=== PATIENT | male | born 1945 | race Caucasian/White ===

== ENCOUNTER 2016-09-19 05:45 | Emergency (ER) | payer OTHER ==
[~2016-09-19] VITALS: Ht 180.3 cm; Wt 108.9 kg
--- NOTE | ~2016-09-19 | EKG ---
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 : 1945 Requested By: Radha Castelan Order Number: [id number] MD: Russ Rodriguez Measurements Intervals [place] Rate: 121 P: [place]: QRS: -56 QRSD: 159 T: 43 QT: 379 QTc: 538 Interpretive Statements Atrial fibrillation RBBB and LAFB Compared to ECG 07/29/2016 10:13:56 Right bundle-branch block now present Supraventricular tachycardia no longer present ST (T wave) deviation no longer present Intraventricular conduction delay no longer present Electronically Signed On 09-19-2016 13:34:42 CDT by Russ Rodriguez [email or web address] <ELECTRONICALLY SIGNED> By: Russ Rodriguez MD 09/19/16 1334 0554 0554 Russ Rodriguez MD /EPI
[~2016-09-19 05:45] MED LIST: 1ST CHOICE LAN1 EACH MISCELL; ALEVE220 MG PO; ALLOPURINOL 10100 M1 PO; AMIODARONE HCL100 MG PO; ASPIR 8181 MG PO; ASPIRIN325 PO; ATENOLOL 50MG T50 M1 PO; ATENOLOL 50MG T50 MG PO; ATORVASTATIN CA40 MG PO; AZULFIDINE500 M1 PO; AZULFIDINE500 MG PO; BACTRIM DS TAB1 EACH PO; CO Q-10100 MG PO; COLCHICINE0.6 MG PO; COUMADIN 5 MG TA5 M1 PO; COZAAR 50 MG TA50 M2 PO; ENOXAPARIN100 MG/11 SUBQ; FISH OIL 1,001000 M2 PO; FLEXERIL PO; FLOMAX0.4 MG PO; GLIPIZIDE ER2.5 MG PO; GLUCOTROL XL5 MG PO; GLUCOTROL5 MG PO; HYDROCHLOROTH12.5 M1 PO; INDOMETHACIN 2525 MG PO; INVOKANA300 MG PO; LASIX 40 MG TAB40 M2 PO; LEVEMIR SUBQ; LOPRESSOR50 PO; LORTAB 5-500 T1 EAC1 PO; METFORMIN HCL500 MG PO; METOPROLOL SUC100 MG PO; MIRALAX17 GM PO; MUCINEX TA600 MG/TA2 PO; MULTAQ400 MG PO; NORCO 5-325 TA1 EAC1 PO; NORCO 5-325 TA1 EACH PO; NOVOLOG100 UNIT/1 SUBQ; PACERONE 200 M200 M1 PO; PACERONE200 MG PO; PENTASA500 MG PO; PERCOCET 5-3251 EACH PO; PRADAXA150 MG PO; PREDNISONE 10 M10 MG PO; PREDNISONE 20 M20 M1 PO; PREDNISONE 20 M20 MG PO; PROSCAR 5MG TABL5 M1 PO; SULFADIAZINE500 MG PO; SULFASALAZINE500 M4 PO; TEMOVATE30 GM; TOPROL XL50 MG PO; TYLENOL325 MG PO; VIBRAMYCIN 100100 MG; VIBRAMYCIN 100100 MG PO; ZOSYN 3.3753.375 GM IV
[2016-09-19 06:24] LABS: HEMATOCRIT 33.1 % (42.0-52.0); HEMOGLOBIN 10.2 gm/dL (14.0-18.0); MCH 22.2 pg (26.0-34.0); MCHC 30.9 g/dL (28.0-37.0); MCV 71.9 fL (80.0-100.0); PLATELET COUNT 146 thou/uL (150-400); RBC 4.61 mil/uL (4.50-6.00); RDW 19.1 % (10.5-14.5); WBC 5.7 thou/uL (4.0-11.0)
[2016-09-19 06:28] LABS: MANUAL DIFF YES
[2016-09-19 07:03] LABS: CALCIUM 9.2 mg/dL (8.5-10.1); CREATININE 1.1 mg/dL (0.6-1.3); POTASSIUM 4.4 mmol/L (3.5-5.1)
[2016-09-19 07:14] LABS: ALBUMIN 3.3 g/dL (3.4-5.0); MAGNESIUM 1.7 mg/dL (1.8-2.4); TOTAL BILIRUBIN 0.6 mg/dL (<0.1-1.0); TOTAL PROTEIN 7.2 g/dL (6.4-8.2); TROPONIN-I 0.04 ng/mL (<0.04-0.07)
[2016-09-19 07:16] LABS: ABSOLUTE NEUTROPHILS 3.5 thou/uL (1.4-8.2); ANISOCYTOSIS 2+; MICROCYTES 1+; TOTAL CELL COUNT 100
[2016-09-19] MEDS ORDERED: NORCO 5-325 TA1 EACH PO (07:35)
[2016-09-19 07:52] VITALS: BP 119/67
== END 2016-09-19 07:48 | disposition home or self-care (01) ==
LOC: ER 05:45
PROVIDERS: Emergency Medicine
DX: I73.9 Peripheral vascular disease, unspecified (principal); S80.922A Unspecified superficial injury of left lower leg, initial encounter; S80.921A Unspecified superficial injury of right lower leg, initial encounter; G56.00 Carpal tunnel syndrome, unspecified upper limb; E11.9 Type 2 diabetes mellitus without complications; I10 Essential (primary) hypertension; N40.0 Benign prostatic hyperplasia without lower urinary tract symptoms; A41.9 Sepsis, unspecified organism; R65.20 Severe sepsis without septic shock; Z90.89 Acquired absence of other organs; Z95.0 Presence of cardiac pacemaker; Z85.9 Personal history of malignant neoplasm, unspecified; I42.9 Cardiomyopathy, unspecified; Z87.891 Personal history of nicotine dependence; Z88.8 Allergy status to other drugs, medicaments and biological substances; X58.XXXA Exposure to other specified factors, initial encounter; Y93.89 Activity, other specified; Y92.89 Other specified places as the place of occurrence of the external cause; Y99.9 Unspecified external cause status

== ENCOUNTER 2017-07-05 12:55 | Inpatient (IN) | payer OTHER ==
[~2017-07-05] VITALS: Ht 180.3 cm; Wt 102.1 kg
--- NOTE | ~2017-07-05 | EKG ---
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: MERCED : 1945 Requested By: Tatianna Desai Order Number: [id number] MD: Russ Rodriguez Measurements Intervals [place] Rate: 60 P: WI: QRS: -67 QRSD: 180 T: 134 QT: 464 QTc: 464 Interpretive Statements Atrial flutter with predominant 4:1 AV block RBBB and LAFB LVH with secondary repolarization abnormality Compared to ECG 07/06/2017 01:04:21 AV block, advanced (high-grade) now present Early repolarization now present Electronically Signed On 07-06-2017 15:41:39 FRANCHISE FIELD CONSULTANT by Russ Rodriguez [email or web address] <ELECTRONICALLY SIGNED> By: Russ Rodriguez MD 07/06/17 1541 0604 0604 Russ Rodriguez MD /EPI
--- NOTE | ~2017-07-05 | EKG ---
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 : 1945 Requested By: Mary Kate Garcia Order Number: [id number] MD: Russ Rodriguez Measurements Intervals [place] Rate: 87 P: [place]: QRS: -69 QRSD: 161 T: 139 QT: 369 QTc: 444 Interpretive Statements Atrial flutter RBBB and LAFB Probable left ventricular hypertrophy Compared to ECG 07/05/2017 12:58:25 Left anterior fascicular block now present Wide-QRS tachycardia no longer present Left-axis deviation no longer present Electronically Signed On 07-06-2017 8:09:48 SUPERVISOR OF INSTRUCTION by Russ Rodriguez [email or web address] <ELECTRONICALLY SIGNED> By: Russ Rodriguez MD 07/06/17 0809 0104 0104 Russ Rodriguez MD /EPI
--- NOTE | ~2017-07-05 | HC ---
[facility] [place] [address] CONSULTATION Name: TRACEY COHEN Room #: 212-P [facility] IN M.R.#: [id number] Admission: 07/05/17 Attend Phys: Perry Vences DO Discharge: 07/09/17 Date of : 49 Report #: [id number] THIS REPORT FOR: //name// CC: Martell Vences DATE OF SERVICE: 07/06/2017 HISTORY OF PRESENT ILLNESS: The patient is a 72-year-old white male, who was admitted with generalized pain and weakness. He was noted to have a wide complex tachycardia and has been diagnosed with atrial fibrillation with rapid ventricular rate, and a pneumonitis. He has a mild cardiomyopathy. He is being followed by Cardiology during his hospitalization. We are seeing him in rehabilitation medicine consultation and Internal medicine as well. PAST MEDICAL HISTORY: Includes hypertension, atrial fibrillation, on Pradaxa. [place] with prior CABG approximately 6 years ago. History of diabetes mellitus, on oral agents. He has had a prior carotid endarterectomy back in 2013, when he had multiple right hemispheric CVAs with high grade severe right internal carotid artery stenosis at that time. ALLERGIES: METFORMIN. PAST SURGICAL HISTORY: Includes coronary artery bypass grafting, hernia repair, tonsillectomy, carotid endarterectomy, liver biopsy, carpal tunnel surgery. FAMILY HISTORY: Includes diabetes. HABITS: Did smoke in the past, quitting greater than a year ago. No history of alcohol abuse. SOCIAL HISTORY: Lives in a house alone, two steps in with 14 inside. There is a son that is involved. He was not on O2 premorbidly. He used a cane or a walker premorbidly. REVIEW OF SYSTEMS: Did not offer any current complaints of chest pain, shortness of breath, abdominal discomfort. He does have shortness of breath with limited activity. Notes today he has had some generalized muscle aching for over a week and apparently was diagnosed with some kind of myalgia per his history. Did not offer any complaints of any headache or bowel or bladder changes per se. PHYSICAL EXAMINATION: GENERAL: A 72-year-old white male, in no obvious distress. He is alert. He is pleasant. VITAL SIGNS: Last recorded temperature 99, pulse 66, respirations 20, blood [facility] [address] [place] [address] CONSULTATION Name: TRACEY COHEN Room #: 212-P [facility] IN M.R.#: [id number] Admission: 07/05/17 Attend Phys: Perry Vences DO Discharge: 07/09/17 Date of : 49 Report #: [id number] pressure 99/54. HEENT: Appeared to be benign. NEUROLOGIC: Cranial nerves are grossly intact. Facies are symmetric. EXTREMITIES: He has functional range of motion of both upper extremities. Strength is grade 4-/5. DTRs are trace to 1. Tone appeared to be intact. Lower extremities, no focal calf swelling, functional range of motion. Strength grade 4-/5. DTRs are trace to 1. He is needing assistance with basic functional mobility skills. He is currently on nasal prong O2. He is on 4 liters. ASSESSMENT: A 72-year-old white male with the following problem list: 1. Generalized weakness with medical complexity. 2. Wide complex tachycardia. 3. Pneumonitis. 4. Mild cardiomyopathy. 5. Atrial fibrillation with rapid ventricular rate. 6. History of atrial fibrillation, on Pradaxa. 7. Prior coronary artery bypass grafting. 8. Prior right carotid endarterectomy. 9. History of multiple right hemispheric CVAs in 2013, with the noted carotid artery disease. 10. Hypertension. PLAN: Therapies will be evaluating him. We will see how he does in his therapies and will be glad to follow along regarding rehab therapy issues. Insurance will need to be checked regarding his rehab therapy options. We will be glad to follow along with you. <ELECTRONICALLY SIGNED> By: Gt Leahy MD 07/10/17 1306 1306 1810 Gt Leahy MD /[facility]
--- NOTE | ~2017-07-05 | 2DMMODE ---
[facility] [address] [place] [address] 2 D/M-MODE ECHOCARDIOGRAM Name: TRACEY COHEN Room #: 212-P [facility] IN ..#: [id number] Admission: 07/05/17 Attend Phys: Perry Vences, Discharge: Date of : 49 Date of Service: 07/06/17 1002 Report #: [id number] THIS REPORT FOR: //name// APPROVED REPORT Study performed: 07/06/2017 08:18:41 EXAM: Comprehensive 2D, Doppler, and color-flow Echocardiogram Patient Location: Bedside Room #: 212 Status: routine BSA: 2.20 HR: 62 bpm BP: 101/63 mmHg Other Information Study Quality: Adequate Indications COPD Diabetes Atrial Fibrillation Hypertension/HDD 2D Dimensions RVDd: 54.10 mm LVEF(%): 34.45 (>50%) IVSd: 12.76 (7-11mm) LVOT Diam: 24.51 (18-24mm) LVDd: 59.98 mm PWd: 12.03 (7-11mm) Ascending Ao: 32.53 (22-36mm) LVDs: 49.94 (25-40mm) Aortic Root: 37.70 mm IVC: 24.00 mm Martinez's LVEF: 34.45 % Volumes Left Atrial Volume (Systole) Single Plane 4CH: 130.94 mL Single Plane 2CH: 71.80 mL LA ESV Index: 48.00 mL/m2 Aortic Valve AoV Peak Roshan.: 1.57 m/s AO Peak Gr.: 9.86 mmHg LVOT Max P.07 mmHg LVOT Max V: 0.88 m/s JOSÉ MIGUEL Vmax: 2.63 cm2 Mitral Valve [facility] [address] [place] [address] 2 D/M-MODE ECHOCARDIOGRAM Name: TRACEY COHEN Room #: 212-P [facility] IN .R.#: [id number] Admission: 07/05/17 Attend Phys: Perry Vences, Discharge: Date of : 49 Date of Service: 07/06/17 1002 Report #: [id number] E/A Ratio: 2.8 MV Decel. Time: 248.30 ms MV E Max Roshan.: 1.05 m/s MV A Orshan.: 0.37 m/s MV PHT: 72.01 ms IVRT: 96.89 ms Pulmonary Valve PV Peak Roshan.: 0.73 m/s PV Peak Gr.: 2.14 mmHg [place] End Vmax: 0.77 m/s Pulmonary Vein P Vein S: 0.15 m/s P Vein A: 0.14 m/s P Vein D: 0.48 m/s P Vein A Dur.: 78.4 msec P Vein S/D Ratio: 0.31 Tricuspid Valve TR Peak Roshan.: 2.69 m/s TR Peak Gr.: 29.02 mmHg PA Pressure: 44.00 mmHg Left Ventricle Left ventricle is dilated. Mild concentric left ventricular hypertrophy. Left ventricular ejection fraction is moderately decreased. LVEF is 30-35%. Global hypokinesis This study is not technically sufficient to allow evaluation of the LV diastolic function. Right Ventricle The right ventricle is normal size. The right ventricular systolic function is normal. Atria Left atrium is dilated. Right atrium is dilated. Aortic Valve Aortic valve is calcified. Mild aortic regurgitation. There is no aortic valvular stenosis. Mitral Valve The mitral valve is normal in structure. Mild-moderate mitral regurgitation. No evidence of mitral valve stenosis. Tricuspid Valve The tricuspid valve is normal in structure. There is mild tricuspid regurgitation. Estimated PAP 45 mmHg. [facility] [address] [place] [address] 2 D/M-MODE ECHOCARDIOGRAM Name: VICKITRACEYCODI ARSHAD Room #: 212-P [facility] IN ..#: [id number] Admission: 07/05/17 Attend Phys: Perry Vences, Discharge: Date of : 49 Date of Service: 07/06/17 1002 Report #: [id number] Pulmonic Valve The pulmonary valve is normal in structure. Trace to mild pulmonic regurgitation. Great Vessels The aortic root is normal in size. The inferior vena cava is dilated with no inspiratory collapse. Pericardium There is no pericardial effusion. <Conclusion> Left ventricular ejection fraction is moderately decreased. LVEF is 30-35%. Global hypokinesis Both atria are dilated. Aortic valve is calcified. Mild aortic regurgitation, no stenosis. The mitral valve is normal in structure. Mild-moderate mitral regurgitation. There is mild tricuspid regurgitation. Estimated pulmonary artery pressure of 45 mmHg. There is no pericardial effusion. <ELECTRONICALLY SIGNED> By: Mario Parisi MD, FACC 07/06/17 1002 1002 1002 Mario Parisi MD, FACC /INF
--- NOTE | ~2017-07-05 | EKG ---
[address] [place] [address] ELECTROCARDIOGRAM REPORT Name: TRACEY COHEN Room #: 212-P ADM IN M.R.#: [id number] Admission: 07/05/17 Attend Phys: Perry Vences DO Discharge: Date of : 49 Report #: [id number] THIS REPORT FOR: //name// [facility] Test Date: 2017-07-07 Test Time: 10:36:25 Pat Name: TRACEY COHEN Department: Room: 212 P Gender: M Bartenders: Karen MAYS : 1945 Requested By: Andrés Mandel Order Number: [id number] MD: Mario Parisi Measurements Intervals [place] Rate: 72 P: [place]: QRS: -58 QRSD: 169 T: 157 QT: 492 QTc: 539 Interpretive Statements Atrial flutter with predominant 4:1 AV block RBBB and LAFB ST and T wave abnormality, consider lateral ischemia Prolonged QT interval Compared to ECG 07/06/2017 06:04:16 No significant changes Electronically Signed On 07-07-2017 17:36:46 PHOTOGRAPH PRINTER by Mario Parisi [email or web address] <ELECTRONICALLY SIGNED> By: Mario Parisi MD, FACC 07/07/17 1736 1036 1036 Mario Parisi MD, [facility] /EPI
--- NOTE | ~2017-07-05 | EKG ---
[address] [address] [place] [address] ELECTROCARDIOGRAM REPORT Name: TRACEY COHEN Room #: REG Bernard#: [id number] Admission: 07/05/17 Attend Phys: Discharge: Date of : 49 Report #: [id number] THIS REPORT FOR: //name// [facility] ED Test Date: 2017-07-05 Test Time: 12:58:25 Pat Name: TRACEY COHEN Department: Room: Gender: M Re Dye Hand: Ana HUNT : 1945 Requested By: Martell Teran Order Number: [id number] MD: Mario Parisi Measurements Intervals [place] Rate: 158 P: 0 ME: QRS: -75 QRSD: 154 T: 80 QT: 320 QTc: 519 Interpretive Statements Wide complex tachycardia Leftward axis and right bundle branch block No previous ECGs available for comparison Electronically Signed On 07-05-2017 13:53:58 CAMPAIGN MANAGEMENT SENIOR MANAGER by Mario Parisi [email or web address] <ELECTRONICALLY SIGNED> By: Mario Parisi MD, [facility] 07/05/17 1353 1258 1258 Mario Parisi MD, FACC /EPI
--- NOTE | ~2017-07-05 | HC ---
[facility] [place] [address] CONSULTATION Name: TRACEY COHEN Room #: 212-P ADM IN M.R.#: [id number] Admission: 07/05/17 Attend Phys: Perry Vences DO Discharge: Date of : 49 Report #: [id number] THIS REPORT FOR: //name// CC: Martell Vences REFERRING PHYSICIAN: Perry Vences DO REASON FOR REFERRAL: Infiltrates. HISTORY OF PRESENT ILLNESS: The patient is a 72-year-old gentleman who presents to the emergency room with generalized weakness. His chest x-ray and chest CT shows infiltrates. A pulmonary consultation was requested. The patient is known to this physician from his past hospitalization. He has a remote history of coronary artery disease, undergoing coronary artery bypass surgery along with history of respiratory failure. He has a longstanding history of ulcerative colitis. He was last hospitalized in July 2016, for atrial fibrillation and lower extremity cellulitis. The patient was doing fairly well until the morning of admission when he complained of low back pain, abdominal pain and then generalized weakness. Otherwise, denies any recent febrile illness, night sweats or chills, chest pain, or productive cough. About a month ago, he also noted palpitations with tachycardia. PAST MEDICAL HISTORY: Notable for coronary artery disease, undergone coronary artery bypass surgery in March 2015, 6-vessel bypass, ischemic cardiomyopathy, ejection fraction of 30%; ulcerative colitis, on chronic corticosteroids and sulfasalazine; diabetes mellitus type 2, paroxysmal atrial fibrillation, hypertension, hyperlipidemia, history of CVA without significant residual deficits, and peripheral vascular disease. PAST SURGICAL HISTORY: As mentioned above. ALLERGIES: METFORMIN, reactions unspecified. HOME MEDICATIONS: Include aspirin, Glucotrol, Zyloprim, Lasix, sulfasalazine, Proscar, Cozaar, Lipitor, and Flomax. SOCIAL HISTORY: The patient lives by himself, he is , has a son who lives in town. He has smoked for most of his life until about 2013 when he quit. He denies any alcohol use. [facility] [address] [place] [address] CONSULTATION Name: VICKITRACEY JEANCARLOS Room #: 212-P [facility] IN M.R.#: [id number] Admission: 07/05/17 Attend Phys: Perry Vences DO Discharge: Date of : 49 Report #: [id number] REVIEW OF SYSTEMS: As mentioned above, otherwise 10-point system review negative. PHYSICAL EXAMINATION: GENERAL: He is awake, alert, in no apparent distress. VITAL SIGNS: Temperature is 98 degrees Fahrenheit, pulse is 60, respiratory rate is 20, blood pressure 110/60 mmHg, saturation 94%. HEENT: Normocephalic, atraumatic. NECK: Supple without lymphadenopathy or thyromegaly. CHEST: Good air movement with few scattered crackles in the bases. No wheezes. CARDIOVASCULAR: Normal S1, S2. No murmurs or gallop. There is no JVD. There is no carotid bruit. Pulses are 2+/4+ bilaterally. ABDOMEN: Moderately obese, soft, nontender, no organomegaly or masses felt. GENITOURINARY: Deferred. RECTAL: Deferred. EXTREMITIES: There is no edema, cyanosis, or clubbing. LABORATORY DATA: CT chest angiogram shows mild infiltrates, more in the dependent parts of both lungs. Increase interseptal linings are noted. Again, the infiltrates felt to be mild. No pulmonary embolus is noted. BNP is 1500. TSH is 2.58. Influenza A and B is negative. D-dimer is 1.2. CT abdomen and pelvis shows thickened sigmoid colon along with diverticula, ultrasound of the lower extremities shows no evidence of DVT, superficial left mid thigh and proximal saphenous vein thrombus is noted. Echocardiogram revealed ejection fraction approximately 30-35%, global hypokinesis, dilated both right and left atria, mild aortic regurgitation, [id number] mitral regurgitation, pulmonary artery pressure measuring 45 mmHg. Sodium 135, potassium 5.8, chloride 101, CO2 is 21, BUN is 37, creatinine is 1.1. WBC 19,400 without bandemia. Troponin 0.7. Arterial blood gas revealed pH 7.37, pCO2 of 36, pO2 of 60 on 2 liters of O2. IMPRESSION: 1. Bilateral infiltrates in this 72-year-old white male. Infiltrates felt to be more dependent. There is increase in interseptal markings. Echocardiogram also revealed ischemic cardiomyopathy, ejection fraction of 30%. BNP is mildly elevated. Suspect the patient likely has acute on chronic systolic heart failure. With leukocytosis, I cannot rule out pneumonia. Pulmonary embolus has been ruled out with a negative CT chest angiogram, though ultrasound shows superficial left mid thigh thrombosis. 2. Superficial left lower extremity thrombosis. With his risk factors, I would recommend anticoagulation during the hospital stay. Follow up serial ultrasound. I do not think he needs prolonged anticoagulation, however. 3. Coronary artery disease, ischemic cardiomyopathy, probable acute on chronic systolic heart failure. 4. Mild valvular heart disease with aortic and mitral regurgitation. [facility] [address] [place] [address] CONSULTATION Name: TRACEY COHEN JR Room #: 212-P ADM IN M.R.#: [id number] Admission: 07/05/17 Attend Phys: Perry Vences DO Discharge: Date of : 49 Report #: [id number] 5. Elevated troponin, as per cardiology. 6. Acute hypoxic respiratory failure due to above process. 7. Atrial fibrillation with rapid ventricular response. RECOMMENDATIONS: Agree with diuresis. I think it is reasonable to continue broad spectrum antibiotics. Follow up chest x-ray. If the patient remains afebrile, could consider discontinuing antibiotics. With moderate obesity and atrial fibrillation, the patient should be screened for sleep disorder breathing. This can be done as an outpatient. A followup chest x-ray recommended in the next 2-3 days. Thank you for this consultation. <ELECTRONICALLY SIGNED> By: Kevin Bo MD 07/08/17 1548 1417 1824 Kevin Bo MD /nt
[2017-07-05 12:56] VITALS: BP 138/96
[2017-07-05 13:11] LABS: HEMATOCRIT 39.4 % (42.0-52.0); HEMOGLOBIN 12.5 gm/dL (14.0-18.0); MCH 25.2 pg (26.0-34.0); MCHC 31.6 g/dL (28.0-37.0); MCV 79.6 fL (80.0-100.0); RBC 4.95 mil/uL (4.50-6.00); RDW 21.2 % (10.5-14.5); WBC 19.4 thou/uL (4.0-11.0)
[2017-07-05 13:14] LABS: CALCIUM 8.7 mg/dL (8.5-10.1); CREATININE 0.6 mg/dL (0.7-1.3); POTASSIUM 5.7 mmol/L (3.5-5.1)
[2017-07-05 13:15] LABS: MAGNESIUM 1.3 mg/dL (1.8-2.4)
[2017-07-05 13:23] LABS: APTT 26.4 Seconds (24.5-32.8); INR 1.1; PROTIME 10.8 Seconds (9.3-11.4)
[2017-07-05 14:23] LABS: BE(vivo) -3.6 mmol/L (-2 to +3); PCO2 36.7 mmHg (35.0-45.0); PO2 60.4 mmHg (80.0-100.0); pH 7.376 (7.360-7.450); sO2 90.8 % (92.0-98.0)
[2017-07-05 18:11] LABS: URINE BILIRUBIN NEGATIVE (Negative); URINE BLOOD 1+ (Negative); URINE CLARITY CLEAR; URINE COLOR YELLOW; URINE GLUCOSE-RANDOM* NEGATIVE (Negative); URINE KETONES NEGATIVE (Negative); URINE LEUKOCYTES-REFLEX NEGATIVE (Negative); URINE NITRITE-REFLEX NEGATIVE (Negative); URINE PROTEIN (DIPSTICK) 2+ (Negative); URINE SPECIFIC GRAVITY 1.025 (1.005-1.035); URINE UROBILINOGEN 0.2 E.U./dl (0.2-1.0)
[2017-07-05 18:19] LABS: CASTS None Seen /LPF (None Seen); CRYSTALS None Seen /LPF (None Seen); SQUAMOUS 0-3 Few /LPF (0-3); URINE RBC 0-2 Rare /HPF (0-2); URINE WBC-REFLEX None Seen /HPF (0-5)
[2017-07-05 18:20] LABS: BACTERIA-REFLEX 1-9 Few /HPF (None Seen)
[2017-07-05 19:39] VITALS: BP 103/61
[2017-07-06 00:13] LABS: BE(vivo) -5.1 mmol/L (-2 to +3); HCO3 19.5 mmol/L (22.0-26.0); PCO2 34.8 mmHg (35.0-45.0); PO2 143.6 mmHg (80.0-100.0); pH 7.366 (7.360-7.450); sO2 98.8 % (92.0-98.0)
[2017-07-06 00:18] VITALS: BP 102/69
[2017-07-06 00:56] LABS: ABSOLUTE NEUTROPHILS 15.1 thou/uL (1.4-8.2); BASOPHILS 0.6 % (0.0-2.0); HEMATOCRIT 38.8 % (42.0-52.0); HEMOGLOBIN 12.2 gm/dL (14.0-18.0); LYMPHOCYTES 5.6 % (24.0-44.0); MCH 25.2 pg (26.0-34.0); MCHC 31.3 g/dL (28.0-37.0); MCV 80.3 fL (80.0-100.0); MONOCYTES 9.6 % (1.0-8.0); PLATELET COUNT 210 thou/uL (150-400); POLYS 84.2 % (36.0-66.0); RBC 4.83 mil/uL (4.50-6.00); RDW 21.6 % (10.5-14.5)
[2017-07-06 01:18] LABS: MAGNESIUM 1.6 mg/dL (1.8-2.4)
[2017-07-06 01:21] LABS: TROPONIN-I 0.72 ng/mL (<0.06)
[2017-07-06 01:31] LABS: CALCIUM 8.5 mg/dL (8.5-10.1); CREATININE 1.1 mg/dL (0.7-1.3)
[2017-07-06 01:32] LABS: POTASSIUM 6.2 mmol/L (3.5-5.1)
[2017-07-06 04:49] VITALS: BP 101/63
[2017-07-06 08:00] VITALS: BP 110/63
[2017-07-06 12:00] VITALS: BP 99/54
[2017-07-06 16:00] VITALS: BP 101/57
[2017-07-06 21:06] VITALS: BP 99/64
[2017-07-07 04:10] LABS: HEMOGLOBIN 10.5 gm/dL (14.0-18.0); MCH 25.2 pg (26.0-34.0); PLATELET COUNT 143 thou/uL (150-400); RBC 4.18 mil/uL (4.50-6.00); RDW 21.8 % (10.5-14.5); WBC 7.7 thou/uL (4.0-11.0)
[2017-07-07 04:23] LABS: CALCIUM 8.2 mg/dL (8.5-10.1); CREATININE 1.2 mg/dL (0.7-1.3)
[2017-07-07 04:26] LABS: POTASSIUM 4.2 mmol/L (3.5-5.1)
[2017-07-07 05:01] LABS: ABSOLUTE NEUTROPHILS 5.5 thou/uL (1.4-8.2); ANISOCYTOSIS 2+; LARGE PLATELETS SEVERAL; POLYCHROMASIA 1+
[2017-07-07 05:21] VITALS: BP 107/62
[2017-07-07 07:31] VITALS: BP 109/61
[2017-07-07 11:48] VITALS: BP 106/68
[2017-07-07 15:30] VITALS: BP 113/71
[2017-07-07 19:35] VITALS: BP 110/69
[2017-07-08 03:32] LABS: POTASSIUM 4.2 mmol/L (3.5-5.1)
[2017-07-08 03:45] VITALS: BP 116/66
[2017-07-08 03:48] LABS: CALCIUM 8.5 mg/dL (8.5-10.1); CREATININE 0.8 mg/dL (0.7-1.3)
[2017-07-08 07:43] VITALS: BP 131/77
[2017-07-08 09:53] LABS: HEMATOCRIT 32.8 % (42.0-52.0); HEMOGLOBIN 10.5 gm/dL (14.0-18.0); MCH 25.6 pg (26.0-34.0); MCHC 32.1 g/dL (28.0-37.0); MCV 79.7 fL (80.0-100.0); PLATELET COUNT 135 thou/uL (150-400); RBC 4.11 mil/uL (4.50-6.00); RDW 21.5 % (10.5-14.5); WBC 5.2 thou/uL (4.0-11.0)
[2017-07-08 11:40] VITALS: BP 111/57
[2017-07-08 11:56] LABS: ABSOLUTE NEUTROPHILS 3.2 thou/uL (1.4-8.2)
[2017-07-08 11:57] LABS: ANISOCYTOSIS 2+; OVALOCYTES 1+; POLYCHROMASIA OCCASIONAL
[2017-07-08 15:45] VITALS: BP 113/71
[2017-07-08 19:26] VITALS: BP 107/64
[2017-07-09 03:43] LABS: CALCIUM 8.3 mg/dL (8.5-10.1); CREATININE 0.7 mg/dL (0.7-1.3); POTASSIUM 4.1 mmol/L (3.5-5.1)
[2017-07-09 03:47] VITALS: BP 138/77
[2017-07-09 07:45] VITALS: BP 126/67
[2017-07-09 12:00] VITALS: BP 109/66
[2017-07-09] MEDS ORDERED: NORCO 5-325 TA1 EACH PO (12:50)
[2017-07-09] MEDS ORDERED: COREG6.25 MG PO (12:50)
[2017-07-09] MEDS ORDERED: DOXYCYCLINE 10100 MG PO (13:05)
[2017-07-09] MEDS ORDERED: MUCINEX1200 MG PO (13:05)
[2017-07-09] MEDS ORDERED: GLUCOTROL5 MG PO (13:34)
[2017-07-09 15:40] VITALS: BP 126/67
[2017-07-09 17:17] VITALS: BP 109/66
== END 2017-07-09 17:52 | DRG 871 ==
LOC: ER 12:55 → EROBS 14:32 → 2N 14:32
PROVIDERS: Emergency Medicine; Family Medicine; Internal Medicine Cardiovascular Disease; Nurse Practitioner Acute Care
PROC: 5A09357 Assistance with Respiratory Ventilation, Less than 24 Consecutive Hours, Continuous Positive Airway Pressure (ICD-10-PCS; principal; 2017-07-05)
DX: A41.9 Sepsis, unspecified organism (principal); J96.01 Acute respiratory failure with hypoxia; J18.9 Pneumonia, unspecified organism; I50.23 Acute on chronic systolic (congestive) heart failure; I48.92 Unspecified atrial flutter; I38 Endocarditis, valve unspecified; I69.951 Hemiplegia and hemiparesis following unspecified cerebrovascular disease affecting right dominant side; K51.90 Ulcerative colitis, unspecified, without complications; I48.0 Paroxysmal atrial fibrillation; R00.0 Tachycardia, unspecified; E78.5 Hyperlipidemia, unspecified; N40.0 Benign prostatic hyperplasia without lower urinary tract symptoms; M10.9 Gout, unspecified; Z60.2 Problems related to living alone; I25.10 Atherosclerotic heart disease of native coronary artery without angina pectoris; I25.5 Ischemic cardiomyopathy; I34.0 Nonrheumatic mitral (valve) insufficiency; E11.51 Type 2 diabetes mellitus with diabetic peripheral angiopathy without gangrene; I35.1 Nonrheumatic aortic (valve) insufficiency; E87.5 Hyperkalemia; R31.9 Hematuria, unspecified; I25.2 Old myocardial infarction; Z95.820 Peripheral vascular angioplasty status with implants and grafts; Z88.8 Allergy status to other drugs, medicaments and biological substances; Z87.891 Personal history of nicotine dependence; Z95.1 Presence of aortocoronary bypass graft; Z83.3 Family history of diabetes mellitus
CPT/HCPCS: 10194

== ENCOUNTER → 2017-07-31 | Outpatient (CLI) | payer OTHER ==
[~2017-07-31] MED LIST changes: +COREG6.25 MG PO; +DOXYCYCLINE 10100 MG PO; +MUCINEX1200 MG PO
== END ==
LOC: MRI 14:05 → EDSTATUS 14:27 → MRI 14:28
DX: M47.894 Other spondylosis, thoracic region (principal); G72.9 Myopathy, unspecified; M50.21 Other cervical disc displacement, high cervical region; M50.221 Other cervical disc displacement at C4-C5 level; M50.222 Other cervical disc displacement at C5-C6 level; M50.223 Other cervical disc displacement at C6-C7 level

== ENCOUNTER → 2017-08-04 | Outpatient (CLI) | payer OTHER | LOC: MRI 14:02 | DX: M47.896 Other spondylosis, lumbar region (principal); M48.061 Spinal stenosis, lumbar region without neurogenic claudication; M62.81 Muscle weakness (generalized) ==

== ENCOUNTER → 2017-12-07 | Outpatient (CLI) | payer OTHER | LOC: RAD 06:15 → SPEECH 07:26 → RAD 18:14 | DX: R13.12 Dysphagia, oropharyngeal phase (principal) ==